=== PATIENT | male | born 1930 | race Caucasian/White ===

== ENCOUNTER → 2016-12-07 | Outpatient (CLI) | payer OTHER ==
[~2016-12-07] MED LIST: AMLO2.5T PO; CALC0.25 PO; LISI-167 PO; LISI-170 PO; METO10TA6 PO; POTA10TA31 PO; SODI650T PO
[2016-12-07 10:44] LABS: ASPARTATE AMINO TRANSFERASE 21 U/L (15-37); BLOOD UREA NITROGEN 32 mg/dL (7-18)
== END | disposition home or self-care (01) ==
LOC: STAR 09:05
PROVIDERS: ATTEND Urology
DX: Z01.818 Encounter for other preprocedural examination (principal); N13.30 Unspecified hydronephrosis
CPT/HCPCS: 36415; 80053; 81001; 87086; 93005

== ENCOUNTER 2016-12-14 09:28 | Day surgery (SDC) | payer OTHER ==
[~2016-12-14] VITALS: Ht 170.2 cm; Wt 67.0 kg
[2016-12-14] MEDS ORDERED: LACTATED RINGERS 1,000 ML IV SCH (10:17)
[2016-12-14 10:47] VITALS: BP 149/89
[2016-12-14] MEDS ORDERED: LIDOCAINE 1%, 2ML ONE (11:18)
[2016-12-14] MEDS ORDERED: PROPOFOL 10 MG/ML, 20ML ONE (12:36)
[2016-12-14] MEDS ORDERED: FENTANYL PF 250 MCG/5ML ONE (12:37)
[2016-12-14] MEDS ORDERED: OMNIPAQUE 350 MG/ML, 50 ML BOTTLE IV ONE (13:14)
[2016-12-14] MEDS ORDERED: OXYcodone/APAP 5/325MG TABLET PO PRN (13:30)
[2016-12-14] MEDS ORDERED: hydrALAzine 20 MG/ML, 1ML IV PRN (13:30)
[2016-12-14] MEDS ORDERED: FENTANYL PF 100 MCG/2ML IV PRN (13:30)
[2016-12-14] MEDS ORDERED: OMNIPAQUE 350 MG/ML, 50 ML BOTTLE ONE (13:30)
[2016-12-14] MEDS ORDERED: OXYcodone 5 MG/5 ML ORAL.SOL UDC PO PRN (13:30)
[2016-12-14] MEDS ORDERED: METOCLOPRAMIDE 5 MG/ML, 2ML IV PRN (13:30)
[2016-12-14] MEDS ORDERED: ACETAMINOPHEN 325 MG TABLET PO PRN (13:30)
[2016-12-14] MEDS ORDERED: MIDAZOLAM 1 MG/ML, 2ML IV PRN (13:30)
[2016-12-14] MEDS ORDERED: HYDROmorphone 1 MG/ML, 1ML IV PRN (13:30)
[2016-12-14] MEDS ORDERED: MEPERIDINE/PF 25MG/0.5ML IVPush PRN (13:30)
[2016-12-14] MEDS ORDERED: PROMETHAZINE 25 MG/ML, 1ML IV PRN (13:30)
[2016-12-14] MEDS ORDERED: ONDANSETRON 2MG/ML, 2ML IVPush PRN (13:30)
[2016-12-14] MEDS ORDERED: LABETALOL 5MG/ML, 20ML IV PRN (13:30)
[2016-12-14] MEDS ORDERED: hydrALAzine 20 MG/ML, 1ML ONE (14:04)
== END 2016-12-14 16:25 | disposition home or self-care (01) ==
LOC: OUT 09:28
PROVIDERS: ATTEND Urology
DX: N13.30 Unspecified hydronephrosis (principal); I12.9 Hypertensive chronic kidney disease with stage 1 through stage 4 chronic kidney disease, or unspecified chronic kidney disease; N18.9 Chronic kidney disease, unspecified; Z99.2 Dependence on renal dialysis; N40.1 Benign prostatic hyperplasia with lower urinary tract symptoms; N13.8 Other obstructive and reflux uropathy; Z86.73 Personal history of transient ischemic attack (TIA), and cerebral infarction without residual deficits; Z87.891 Personal history of nicotine dependence; Z80.42 Family history of malignant neoplasm of prostate
CPT/HCPCS: 52332; 74420; C1758; C1769; C2617; J0360; J2704; Q9967; J3010

== ENCOUNTER → 2017-05-13 | Outpatient (CLI) | payer OTHER ==
[~2017-05-13] MED LIST changes: +CIPR-184 PO
== END ==
LOC: STAR 11:31
PROVIDERS: ATTEND Urology
DX: Z01.818 Encounter for other preprocedural examination (principal); N13.30 Unspecified hydronephrosis; N18.9 Chronic kidney disease, unspecified
CPT/HCPCS: 93005

== ENCOUNTER 2017-05-17 14:10 | Day surgery (SDC) | payer OTHER ==
[2017-05-13 12:45] VITALS: BP 173/103
[~2017-05-17] VITALS: Ht 170.2 cm; Wt 66.5 kg
[~2017-05-17 14:10] MED LIST changes: -CIPR-184 PO
[2017-05-17] MEDS ORDERED: LACTATED RINGERS 1,000 ML IV SCH ×2 (14:20→14:38)
[2017-05-17] MEDS ORDERED: OMNIPAQUE 350 MG/ML, 50 ML BOTTLE IV ONE (17:10)
[2017-05-17] MEDS ORDERED: ONDANSETRON 2MG/ML, 2ML ONE (17:52)
[2017-05-17] MEDS ORDERED: PROPOFOL 10 MG/ML, 20ML ONE (17:52)
[2017-05-17] MEDS ORDERED: CIPROFLOXACIN 400MG/200ML PMX ONE (17:52)
[2017-05-17] MEDS ORDERED: FENTANYL PF 100 MCG/2ML ONE (17:56)
[2017-05-17] MEDS ORDERED: OXYcodone 5 MG/5 ML ORAL.SOL UDC PO PRN ×2 (18:30→19:00)
[2017-05-17] MEDS ORDERED: hydrALAzine 20 MG/ML, 1ML IV PRN (18:30)
[2017-05-17] MEDS ORDERED: ONDANSETRON 2MG/ML, 2ML IVPush PRN (18:30)
[2017-05-17] MEDS ORDERED: LABETALOL 5MG/ML, 20ML IV PRN (18:30)
[2017-05-17] MEDS ORDERED: FENTANYL PF 100 MCG/2ML IV PRN (18:30)
[2017-05-17] MEDS ORDERED: PROMETHAZINE 25 MG/ML, 1ML IV PRN (18:30)
[2017-05-17] MEDS ORDERED: MIDAZOLAM 1 MG/ML, 2ML IV PRN (18:30)
[2017-05-17] MEDS ORDERED: HYDROmorphone 1 MG/ML, 1ML IV PRN (18:30)
[2017-05-17] MEDS ORDERED: OMNIPAQUE 350 MG/ML, 50 ML BOTTLE ONE (18:38)
[2017-05-17] MEDS ORDERED: CIPR-184 PO (20:09)
[2017-05-17 20:25] VITALS: BP 158/83
== END 2017-05-17 22:45 | disposition home or self-care (01) ==
LOC: OR 14:10 → 4NOR 19:58 → OR 22:45
PROVIDERS: ATTEND Urology
DX: N13.30 Unspecified hydronephrosis (principal); N18.9 Chronic kidney disease, unspecified; J44.9 Chronic obstructive pulmonary disease, unspecified; F10.21 Alcohol dependence, in remission
CPT/HCPCS: 52332; 74420; C1758; C2617; J0744; J2405; J2704; J3010; J7120; Q9967

== ENCOUNTER → 2018-06-10 | Outpatient (CLI) | payer OTHER ==
[~2018-06-10] MED LIST changes: -AMLO2.5T PO; +AMLO2.5T3 PO; +CIPR-184 PO
[2018-06-10 11:15] LABS: MICROSCOPIC INDICATED
[2018-06-10 11:22] LABS: ALANINE AMINOTRANSFERASE 25 U/L (12-78); ALBUMIN 3.8 g/dL (3.4-5.0); ANION GAP 5 mmol/L (5-15); CALCIUM 9.1 mg/dL (8.5-10.1); CHLORIDE 109 mmol/L (98-107)
[2018-06-10 11:25] LABS: ALKALINE PHOSPHATASE 74 U/L (45-117); BILIRUBIN,TOTAL 0.4 mg/dL (0.2-1.0); CREATININE 3.64 mg/dL (0.7-1.3); TOTAL PROTEIN 7.4 g/dL (6.4-8.2)
== END | disposition home or self-care (01) ==
LOC: STAR 10:01
PROVIDERS: ATTEND Urology
DX: Z01.818 Encounter for other preprocedural examination (principal); I51.7 Cardiomegaly; N13.30 Unspecified hydronephrosis; I25.2 Old myocardial infarction
CPT/HCPCS: 36415; 80053; 81001; 87086; 93005

== ENCOUNTER 2018-10-24 03:11 | Inpatient (IN) | payer MEDICARE, OTHER ==
[~2018-10-24] VITALS: Ht 167.6 cm; Wt 62.6 kg
[~2018-10-24 03:11] MED LIST changes: -AMLO2.5T3 PO; +AMLO2.5T5 PO
--- NOTE | 2018-10-24 03:24 | NUR ---
WOKE FEELING NAUSEATED AND C/O ABD PAIN, NOW RUQ PAIN PER EMS, PT DENIES CURRENT PAIN, STATES FEELS 'SPENT', PA AT BEDSIDE, CALL LIGHT IN REACH, IN ROOM Addendum: 10/24/18 at 0326 by NORAH PT PLACED ON SAP DIRECTOR
[2018-10-24 03:43] LABS: BASOPHILS # (AUTO) 0.02 x10^3/uL (0-0.1); BASOPHILS % (AUTO) 0 % (0-1); EOSINOPHILS # (AUTO) 0.41 x10^3/uL (0-0.4); EOSINOPHILS % (AUTO) 7 % (1-7); LYMPHOCYTES # (AUTO) 0.99 x10^3/uL (1-3.4); LYMPHOCYTES % (AUTO) 18 % (22-44); MD NO; MEAN CORPUSCULAR HEMOGLOBIN 31.7 pg (27.5-34.5); MEAN CORPUSCULAR HGB CONC 33.3 g/dL (33.2-36.2); MEAN PLATELET VOLUME 8.2 fL (7.4-10.4); MONOCYTES % (AUTO) 11 % (2-9); NEUTROPHILS % (AUTO) 63 % (42-75); PLATELET COUNT 200 x10^3/uL (130-400); RED BLOOD COUNT 4.33 x10^6/uL (4.38-5.82); RED CELL DISTRIBUTION WIDTH 13.6 % (9.4-14.8)
[2018-10-24 03:54] LABS: ALANINE AMINOTRANSFERASE 22 U/L (12-78); ALBUMIN 3.8 g/dL (3.4-5.0); ANION GAP 5 mmol/L (5-15); CALCIUM 9.7 mg/dL (8.5-10.1); CHLORIDE 106 mmol/L (98-107); CREATININE 4.82 mg/dL (0.7-1.3)
[2018-10-24 03:58] LABS: ALKALINE PHOSPHATASE 65 U/L (45-117); BILIRUBIN,TOTAL 0.3 mg/dL (0.2-1.0); TOTAL PROTEIN 7.2 g/dL (6.4-8.2); TROPONIN I < 0.015 ng/mL (0.000-0.045)
--- NOTE | 2018-10-24 04:39 | NUR ---
PT IN US
--- NOTE | 2018-10-24 05:08 | NUR ---
PT BACK FROM US, MEDICATED PER [facility], IV ACCESS ESTABLISHED
[2018-10-24 06:42] LABS: CULTURE INDICATED? YES; MICROSCOPIC AUTO
--- NOTE | 2018-10-24 07:15 | NUR ---
Plan of care updated with patient and his , questions answered.
[2018-10-24] MEDS ORDERED: ACETAMINOPHEN 325 MG TABLET PO PRN ×2 (07:30→14:30)
[2018-10-24] MEDS ORDERED: hydrALAzine 20 MG/ML, 1ML IVPush PRN (07:30)
--- NOTE | 2018-10-24 08:13 | NUR ---
Plan of care discussed with patient and his based on admit orders placed. Patient to remain NPO until evaluated by urology, patient verbalizes understanding.
[2018-10-24] MEDS: SODIUM CHLORIDE FLUSH 10ML SYR IVF SCH ×2 (09:00→20:49)
--- NOTE | 2018-10-24 09:25 | NUR ---
ASSUMED CARE OF PT. PT DENIES ANY COMPLAINTS. EXPLAINED WAITING FOR HOSPITALIST AND A BED. PT NPO.
--- NOTE | 2018-10-24 10:35 | NUR ---
PLACED IN HOSPITAL BED STILL WAITING HOSPITALIST
[2018-10-24] MEDS ORDERED: CEFTRIAXONE PMX 1GM/50ML 50 ML ONE (12:13)
[2018-10-24] MEDS: CEFTRIAXONE PMX 1GM/50ML 50 ML IV SCH (12:32)
[2018-10-24] MEDS: AMLODIPINE 2.5 MG TABLET PO SCH (12:32)
[2018-10-24] MEDS: SODIUM BICARBONATE 650 MG TABLET PO SCH ×2 (12:32→20:46)
[2018-10-24] MEDS: CALCITRIOL 0.25 MCG CAPSULE PO SCH (12:33)
[2018-10-24] MEDS ORDERED: HEPARIN 5,000 UNITS/ML, 1ML ONE (12:38)
[2018-10-24] MEDS: HEPARIN 5,000 UNITS/ML, 1ML SQ SCH ×2 (12:39→20:47)
--- NOTE | 2018-10-24 12:43 | NUR ---
ROUTINE MORNING MEDS GIVEN
--- NOTE | 2018-10-24 12:55 | NUR ---
REPORT GIVEN TO DAVID VALLE IN PRE-OP [facility] TO TRY TO COME GET PT
[2018-10-24] MEDS ORDERED: FENTANYL PF 100 MCG/2ML ONE (14:15)
[2018-10-24] MEDS ORDERED: PROPOFOL 10 MG/ML, 20ML ONE (14:25)
[2018-10-24] MEDS ORDERED: ONDANSETRON 2MG/ML, 2ML ONE (14:25)
[2018-10-24] MEDS ORDERED: LIDOCAINE-MPF 2% ,5ML ONE (14:25)
[2018-10-24] MEDS ORDERED: CEFAZOLIN 1,000 MG ONE (14:25)
[2018-10-24] MEDS ORDERED: OXYcodone 5 MG/5 ML ORAL.SOL UDC PO PRN (14:30)
[2018-10-24] MEDS ORDERED: ONDANSETRON 2MG/ML, 2ML IV PRN (14:30)
[2018-10-24] MEDS ORDERED: ONDANSETRON ODT 8 MG PO PRN (14:30)
[2018-10-24] MEDS ORDERED: FENTANYL PF 100 MCG/2ML IV PRN (14:30)
[2018-10-24 20:00] VITALS: BP 166/79
[2018-10-25 01:15] VITALS: BP 153/83
[2018-10-25] MEDS: HEPARIN 5,000 UNITS/ML, 1ML SQ SCH ×3 (04:59→20:47)
[2018-10-25 05:41] LABS: BASOPHILS # (AUTO) 0.03 x10^3/uL (0-0.1); BASOPHILS % (AUTO) 1 % (0-1); EOSINOPHILS # (AUTO) 0.17 x10^3/uL (0-0.4); EOSINOPHILS % (AUTO) 3 % (1-7); LYMPHOCYTES # (AUTO) 0.64 x10^3/uL (1-3.4); LYMPHOCYTES % (AUTO) 11 % (22-44); MD NO; MEAN CORPUSCULAR HEMOGLOBIN 31.7 pg (27.5-34.5); MEAN CORPUSCULAR HGB CONC 33.8 g/dL (33.2-36.2); MEAN CORPUSCULAR VOLUME 93.6 fL (81-97); MEAN PLATELET VOLUME 8.5 fL (7.4-10.4); MONOCYTES # (AUTO) 0.51 x10^3/uL (0.2-0.8); MONOCYTES % (AUTO) 9 % (2-9); NEUTROPHILS # (AUTO) 4.64 x10^3/uL (1.8-6.8); NEUTROPHILS % (AUTO) 77 % (42-75); PLATELET COUNT 168 x10^3/uL (130-400); RED CELL DISTRIBUTION WIDTH 13.6 % (9.4-14.8)
[2018-10-25 05:50] LABS: ALBUMIN 3.4 g/dL (3.4-5.0); CHLORIDE 107 mmol/L (98-107)
[2018-10-25 05:59] LABS: % IRON SATURATION 30 % (20-55); ALANINE AMINOTRANSFERASE 19 U/L (12-78); ALKALINE PHOSPHATASE 79 U/L (45-117); ANION GAP 11 mmol/L (5-15); BILIRUBIN,TOTAL 0.5 mg/dL (0.2-1.0); CALCIUM 9.1 mg/dL (8.5-10.1); CREATININE 4.85 mg/dL (0.7-1.3); IRON LEVEL 60 mcg/dL (65-175); TOTAL IRON BINDING CAPACITY 199 mcg/dL (250-450); TOTAL PROTEIN 6.7 g/dL (6.4-8.2)
[2018-10-25] MEDS: SODIUM CHLORIDE FLUSH 10ML SYR IVF SCH ×2 (09:00→20:47)
[2018-10-25] MEDS: CALCITRIOL 0.25 MCG CAPSULE PO SCH (09:28)
[2018-10-25] MEDS: AMLODIPINE 2.5 MG TABLET PO SCH (09:28)
[2018-10-25] MEDS: SODIUM BICARBONATE 650 MG TABLET PO SCH ×2 (09:28→20:46)
[2018-10-25] MEDS: CEFTRIAXONE PMX 1GM/50ML 50 ML IV SCH (09:33)
[2018-10-25] MEDS: LISINOPRIL 20 MG TABLET PO SCH ×2 (12:48→20:47)
[2018-10-25] MEDS: LACTATED RINGERS 1,000 ML IV SCH (12:48)
[2018-10-25 14:55] VITALS: BP 148/79
[2018-10-25 19:26] VITALS: BP 164/79
[2018-10-26 02:28] VITALS: BP 174/70
[2018-10-26 05:40] LABS: BASOPHILS # (AUTO) 0.02 x10^3/uL (0-0.1); BASOPHILS % (AUTO) 1 % (0-1); EOSINOPHILS # (AUTO) 0.27 x10^3/uL (0-0.4); EOSINOPHILS % (AUTO) 6 % (1-7); LYMPHOCYTES # (AUTO) 0.69 x10^3/uL (1-3.4); LYMPHOCYTES % (AUTO) 14 % (22-44); MD NO; MEAN CORPUSCULAR HEMOGLOBIN 30.9 pg (27.5-34.5); MEAN CORPUSCULAR HGB CONC 32.9 g/dL (33.2-36.2); MEAN CORPUSCULAR VOLUME 94.1 fL (81-97); MEAN PLATELET VOLUME 8.7 fL (7.4-10.4); MONOCYTES # (AUTO) 0.51 x10^3/uL (0.2-0.8); MONOCYTES % (AUTO) 11 % (2-9); NEUTROPHILS # (AUTO) 3.32 x10^3/uL (1.8-6.8); NEUTROPHILS % (AUTO) 69 % (42-75); PLATELET COUNT 183 x10^3/uL (130-400); RED BLOOD COUNT 4.15 x10^6/uL (4.38-5.82)
[2018-10-26] MEDS: HEPARIN 5,000 UNITS/ML, 1ML SQ SCH ×2 (05:44→13:19)
[2018-10-26 05:45] LABS: ALBUMIN 3.1 g/dL (3.4-5.0); ANION GAP 8 mmol/L (5-15); CALCIUM 8.8 mg/dL (8.5-10.1); CHLORIDE 106 mmol/L (98-107)
[2018-10-26 05:49] LABS: ALANINE AMINOTRANSFERASE 17 U/L (12-78); ALKALINE PHOSPHATASE 70 U/L (45-117); BILIRUBIN,TOTAL 0.3 mg/dL (0.2-1.0); CREATININE 4.58 mg/dL (0.7-1.3); TOTAL PROTEIN 6.2 g/dL (6.4-8.2)
[2018-10-26] MEDS: SODIUM CHLORIDE FLUSH 10ML SYR IVF SCH (09:00)
[2018-10-26 09:10] VITALS: BP 172/84
[2018-10-26] MEDS: LACTATED RINGERS 1,000 ML IV SCH (10:16)
[2018-10-26] MEDS: CEFTRIAXONE PMX 1GM/50ML 50 ML IV SCH (10:16)
[2018-10-26] MEDS: CALCITRIOL 0.25 MCG CAPSULE PO SCH (10:16)
[2018-10-26] MEDS: SODIUM BICARBONATE 650 MG TABLET PO SCH (10:16)
[2018-10-26] MEDS: AMLODIPINE 2.5 MG TABLET PO SCH (10:16)
[2018-10-26] MEDS: LISINOPRIL 20 MG TABLET PO SCH (10:17)
[2018-10-26 13:22] VITALS: BP 149/81
[2018-10-26] MEDS ORDERED: AMLO2.5T5 PO (14:05)
[2018-10-27] MEDS ORDERED: AMLODIPINE 2.5 MG TABLET PO SCH (09:00)
== END 2018-10-26 16:35 | disposition home or self-care (01) | DRG 659 ==
LOC: ED 06:00 → EDIP 06:06 → ED 06:10 → 4WST 18:03 → DCLOUNGE 10-26 16:13
PROVIDERS: ADMIT Hospitalist; ATTEND Hospitalist
PROC: 0TP98DZ Removal of Intraluminal Device from Ureter, Via Natural or Artificial Opening Endoscopic (ICD-10-PCS; 2018-10-24)
PROC: BT141ZZ Fluoroscopy of Kidneys, Ureters and Bladder using Low Osmolar Contrast (ICD-10-PCS; 2018-10-24)
PROC: 0T788DZ Dilation of Bilateral Ureters with Intraluminal Device, Via Natural or Artificial Opening Endoscopic (ICD-10-PCS; principal; 2018-10-24 14:30)
DX: T83.122A Displacement of indwelling ureteral stent, initial encounter (principal); N18.6 End stage renal disease; N13.8 Other obstructive and reflux uropathy; I12.0 Hypertensive chronic kidney disease with stage 5 chronic kidney disease or end stage renal disease; E87.2 Acidosis; I16.1 Hypertensive emergency; N17.9 Acute kidney failure, unspecified; N13.6 Pyonephrosis; Z99.2 Dependence on renal dialysis; D64.9 Anemia, unspecified; N28.1 Cyst of kidney, acquired; R31.0 Gross hematuria; R32 Unspecified urinary incontinence; Y73.2 Prosthetic and other implants, materials and accessory gastroenterology and urology devices associated with adverse incidents; Z87.891 Personal history of nicotine dependence
CPT/HCPCS: 36415; 71045; 74018; 76001; 76770; 80053; 81001; 82306; 82728; 83540; 83550; 83690; 83735; 83880; 83970; 84100; 84484; 84550; 85025; 87086; 93005; 96374; 99285; G0378; J0690; J0696; J1644; J2405; J2704; J3010; J3490; C1769; C2617; J7120

== ENCOUNTER 2019-06-05 06:42 | Day surgery (SDC) | payer MEDICARE ==
[~2019-06-05] VITALS: Ht 167.6 cm; Wt 62.2 kg
--- NOTE | 2019-06-05 06:55 | NUR ---
REPORT GIVEN TO DAVID CLOUD
--- NOTE | 2019-06-05 07:04 | NUR ---
ASSUMED CARE. PT HAS A STIFF NECK, STATING IT STARTED WHEN HE GOT IN BED LAST NIGHT AND WAS READING A BOOK. PT STATES SOME IMPROVEMENT IN PAIN SINCE MEDICATED ENROUTE BY EMS.
[2019-06-05] MEDS ORDERED: DIAZEPAM 5 MG TABLET PO ONE (07:30)
[2019-06-05] MEDS ORDERED: HYDROcodone/APAP 5/325 TABLET PO ONE (07:30)
[2019-06-05 07:51] LABS: BASOPHILS # (AUTO) 0.02 x10^3/uL (0-0.1); BASOPHILS % (AUTO) 0 % (0-1); EOSINOPHILS # (AUTO) 0.08 x10^3/uL (0-0.4); EOSINOPHILS % (AUTO) 1 % (1-7); LYMPHOCYTES # (AUTO) 0.49 x10^3/uL (1-3.4); LYMPHOCYTES % (AUTO) 6 % (22-44); MD NO; MEAN CORPUSCULAR HEMOGLOBIN 31.5 pg (27.5-34.5); MEAN CORPUSCULAR VOLUME 95.5 fL (81-97); MEAN PLATELET VOLUME 7.6 fL (7.4-10.4); MONOCYTES # (AUTO) 0.59 x10^3/uL (0.2-0.8); MONOCYTES % (AUTO) 8 % (2-9); NEUTROPHILS # (AUTO) 6.59 x10^3/uL (1.8-6.8); NEUTROPHILS % (AUTO) 85 % (42-75); PLATELET COUNT 177 x10^3/uL (130-400); RED BLOOD COUNT 4.33 x10^6/uL (4.38-5.82); RED CELL DISTRIBUTION WIDTH 14.3 % (9.4-14.8)
[2019-06-05] MEDS ORDERED: HYDROcodone/APAP 5/325 TABLET ONE (07:59)
[2019-06-05] MEDS ORDERED: DIAZEPAM 5 MG TABLET ONE (08:00)
[2019-06-05] MEDS ORDERED: ONDANSETRON 2MG/ML, 2ML IVPush ONE (08:00)
[2019-06-05] MEDS ORDERED: SODIUM CHLORIDE FLUSH 10ML SYR IVF ONE (08:00)
[2019-06-05 08:01] LABS: ALBUMIN 3.7 g/dL (3.4-5.0); ANION GAP 6 mmol/L (5-15); CALCIUM 8.7 mg/dL (8.5-10.1); CHLORIDE 110 mmol/L (98-107)
[2019-06-05] MEDS ORDERED: MORPHINE SULFATE 4 MG/ML, 1ML ONE (08:01)
[2019-06-05] MEDS ORDERED: ONDANSETRON 2MG/ML, 2ML ONE (08:01)
[2019-06-05 08:02] LABS: CREATININE 3.64 mg/dL (0.7-1.3)
[2019-06-05] MEDS: MORPHINE SULFATE 4 MG/ML, 1ML IVPush PRN ×2 (08:03→12:05)
--- NOTE | 2019-06-05 08:08 | NUR ---
PAIN WORSTENING WITH PT MOANING. MEDICATED PER ORDERS.
--- NOTE | 2019-06-05 08:45 | NUR ---
PT APPEARS MORE COMFORTABLE SINCE MEDICATED FOR NECK PAIN.
--- NOTE | 2019-06-05 11:08 | NUR ---
hospitalist at bedside
[2019-06-05] MEDS ORDERED: ONDANSETRON ODT 4 MG PO PRN (11:30)
[2019-06-05] MEDS ORDERED: ONDANSETRON 2MG/ML, 2ML IVPush PRN (11:30)
--- NOTE | 2019-06-05 11:35 | NUR ---
REPORT TO VIVIANA HERNANDEZ. PT TO BE TRANSPORTED TO FLOOR
[2019-06-05] MEDS: HEPARIN 5,000 UNITS/ML, 1ML SQ SCH ×2 (12:30→21:34)
[2019-06-05] MEDS: ACETAMINOPHEN 325 MG TABLET PO SCH ×2 (12:31→18:12)
[2019-06-05] MEDS: SODIUM CHLORIDE 0.9% 1,000 ML IV SCH (12:35)
[2019-06-05] MEDS ORDERED: LISINOPRIL 20 MG TABLET ONE (13:10)
[2019-06-05] MEDS ORDERED: AMLODIPINE 2.5 MG TABLET ONE (13:11)
[2019-06-05] MEDS ORDERED: AMLODIPINE 2.5 MG TABLET PO ONE (13:30)
[2019-06-05] MEDS ORDERED: LISINOPRIL 20 MG TABLET PO ONE (13:30)
[2019-06-05 14:35] VITALS: BP 172/84
[2019-06-05] MEDS ORDERED: OMNIPAQUE 350 MG/ML, 50 ML BOTTLE ONE (15:30)
[2019-06-05] MEDS: SODIUM BICARBONATE 650 MG TABLET PO SCH ×2 (16:44→21:33)
[2019-06-05 19:14] VITALS: BP 156/77
[2019-06-05] MEDS: LISINOPRIL 20 MG TABLET PO SCH (21:34)
[2019-06-06] MEDS: ACETAMINOPHEN 325 MG TABLET PO SCH ×4 (00:42→18:43)
[2019-06-06 01:37] VITALS: BP 175/79
[2019-06-06] MEDS: SODIUM BICARBONATE 650 MG TABLET PO SCH ×4 (06:15→20:22)
[2019-06-06] MEDS: HEPARIN 5,000 UNITS/ML, 1ML SQ SCH ×3 (06:15→20:23)
[2019-06-06 06:17] LABS: ANION GAP 6 mmol/L (5-15); CALCIUM 8.3 mg/dL (8.5-10.1); CHLORIDE 111 mmol/L (98-107)
[2019-06-06 06:18] LABS: CREATININE 3.66 mg/dL (0.7-1.3)
[2019-06-06 08:00] VITALS: BP 175/79
[2019-06-06] MEDS: AMLODIPINE 2.5 MG TABLET PO SCH (09:22)
[2019-06-06] MEDS: LISINOPRIL 20 MG TABLET PO SCH ×2 (09:22→20:23)
[2019-06-06] MEDS: CALCITRIOL 0.25 MCG CAPSULE PO SCH (09:23)
[2019-06-06] MEDS: SODIUM CHLORIDE 0.9% 1,000 ML IV SCH (12:12)
[2019-06-06 13:59] VITALS: BP 132/82
[2019-06-06] MEDS ORDERED: FENTANYL PF 100 MCG/2ML ONE ×2 (15:27→15:39)
[2019-06-06] MEDS ORDERED: DEXAMETHASONE 4 MG/ML, 1ML ONE (15:40)
[2019-06-06] MEDS ORDERED: PROPOFOL 10 MG/ML, 20ML ONE (15:40)
[2019-06-06] MEDS ORDERED: CEFAZOLIN 1,000 MG ONE (15:55)
[2019-06-06] MEDS ORDERED: OXYcodone 5 MG/5 ML ORAL.SOL UDC PO PRN (16:00)
[2019-06-06] MEDS ORDERED: LABETALOL 5MG/ML, 20ML IV PRN (16:00)
[2019-06-06] MEDS ORDERED: PROMETHAZINE 25 MG/ML, 1ML IV PRN (16:00)
[2019-06-06] MEDS ORDERED: FENTANYL PF 100 MCG/2ML IV PRN (16:00)
[2019-06-06] MEDS ORDERED: MORPHINE SULFATE 4 MG/ML, 1ML IVPush PRN (16:00)
[2019-06-06] MEDS ORDERED: ONDANSETRON 2MG/ML, 2ML IV PRN (16:00)
[2019-06-06] MEDS ORDERED: ACETAMINOPHEN 325 MG TABLET PO PRN (16:00)
[2019-06-06] MEDS: hydrALAzine 20 MG/ML, 1ML IV PRN ×2 (16:41→16:51)
[2019-06-06] MEDS ORDERED: hydrALAzine 20 MG/ML, 1ML ONE (16:50)
[2019-06-06 19:26] VITALS: BP 165/72
[2019-06-07] MEDS: ACETAMINOPHEN 325 MG TABLET PO SCH ×3 (00:22→12:42)
[2019-06-07 01:10] VITALS: BP 157/70
[2019-06-07 05:57] LABS: BASOPHILS # (AUTO) 0.03 x10^3/uL (0-0.1); BASOPHILS % (AUTO) 0 % (0-1); EOSINOPHILS # (AUTO) 0.05 x10^3/uL (0-0.4); EOSINOPHILS % (AUTO) 1 % (1-7); LYMPHOCYTES # (AUTO) 0.68 x10^3/uL (1-3.4); LYMPHOCYTES % (AUTO) 11 % (22-44); MD NO; MEAN CORPUSCULAR HGB CONC 32.2 g/dL (33.2-36.2); MEAN CORPUSCULAR VOLUME 96.3 fL (81-97); MEAN PLATELET VOLUME 7.9 fL (7.4-10.4); MONOCYTES # (AUTO) 0.55 x10^3/uL (0.2-0.8); MONOCYTES % (AUTO) 9 % (2-9); NEUTROPHILS # (AUTO) 4.67 x10^3/uL (1.8-6.8); NEUTROPHILS % (AUTO) 78 % (42-75); PLATELET COUNT 186 x10^3/uL (130-400); RED BLOOD COUNT 4.23 x10^6/uL (4.38-5.82); RED CELL DISTRIBUTION WIDTH 14.5 % (9.4-14.8)
[2019-06-07 06:06] LABS: ANION GAP 10 mmol/L (5-15); CALCIUM 8.7 mg/dL (8.5-10.1); CHLORIDE 110 mmol/L (98-107); CREATININE 4.02 mg/dL (0.7-1.3)
[2019-06-07] MEDS: HEPARIN 5,000 UNITS/ML, 1ML SQ SCH (06:15)
[2019-06-07] MEDS: SODIUM BICARBONATE 650 MG TABLET PO SCH ×2 (06:15→11:39)
[2019-06-07 06:58] VITALS: BP 160/66
[2019-06-07] MEDS: AMLODIPINE 2.5 MG TABLET PO SCH (09:10)
[2019-06-07] MEDS: LISINOPRIL 20 MG TABLET PO SCH (09:11)
[2019-06-07] MEDS: CALCITRIOL 0.25 MCG CAPSULE PO SCH (09:11)
[2019-06-07] MEDS: SODIUM CHLORIDE 0.9% 1,000 ML IV SCH (11:39)
[2019-06-07] MEDS ORDERED: AMLODIPINE 2.5 MG TABLET PO SCH (21:00)
== END 2019-06-07 13:14 | disposition home or self-care (01) ==
LOC: ED 08:04 → OUT 11:03 → EDIP 11:03 → UNDOADMIN 11:03 → 3N 11:47 → EDIP 11:47 → EDSTATUS 18:27 → OUT 06-07 13:14 → UNDODISIN 06-07 13:14
PROVIDERS: ATTEND Emergency Medicine
DX: Z46.6 Encounter for fitting and adjustment of urinary device (principal); N13.30 Unspecified hydronephrosis; I12.9 Hypertensive chronic kidney disease with stage 1 through stage 4 chronic kidney disease, or unspecified chronic kidney disease; N18.4 Chronic kidney disease, stage 4 (severe); N17.9 Acute kidney failure, unspecified; Z79.899 Other long term (current) drug therapy
CPT/HCPCS: 36415; 52332; 72125; 72141; 74420; 76770; 80048; 82040; 85025; 96374; 97162; 97530; 99285; C1769; C2617; J0360; J0690; J1100; J1644; J2270; J2405; J2704; J3010; J7030; Q9967; G0378

== ENCOUNTER 2020-05-02 07:00 | Day surgery (SDC) | payer MEDICARE ==
[2020-04-29 11:52] LABS: CHLORIDE 106 mmol/L (98-107)
[2020-04-29 12:00] LABS: MICROSCOPIC AUTO
[2020-04-29 12:33] LABS: ALANINE AMINOTRANSFERASE 15 U/L (12-78); ALKALINE PHOSPHATASE 76 U/L (45-117); ANION GAP 10 mmol/L (5-15); BILIRUBIN,TOTAL 0.3 mg/dL (0.2-1.0); CALCIUM 8.9 mg/dL (8.5-10.1); CREATININE 4.51 mg/dL (0.7-1.3); TOTAL PROTEIN 7.8 g/dL (6.4-8.2)
[~2020-05-02] VITALS: Ht 170.2 cm; Wt 63.0 kg
[~2020-05-02 07:00] MED LIST changes: +FUROSEMIDE PO
[2020-05-02] MEDS ORDERED: CHLORHEXIDINE 15 ML UDC MM STA (07:14)
[2020-05-02 07:33] VITALS: BP 145/74
[2020-05-02] MEDS ORDERED: LACTATED RINGERS 1,000 ML IV SCH (08:01)
[2020-05-02] MEDS ORDERED: FENTANYL PF 250 MCG/5ML ONE (08:54)
[2020-05-02] MEDS ORDERED: ROCURONIUM 10MG/ML,5ML ONE (09:13)
[2020-05-02] MEDS ORDERED: GLYCOPYRROLATE 0.2MG/1ML, 5ML ONE (09:13)
[2020-05-02] MEDS ORDERED: PROPOFOL 10 MG/ML, 20ML ONE (09:13)
[2020-05-02] MEDS ORDERED: CEFAZOLIN 1,000 MG ONE (09:13)
[2020-05-02] MEDS ORDERED: NEOSTIGMINE 1 MG/ML, 10ML ONE (09:13)
[2020-05-02] MEDS ORDERED: OXYcodone 5 MG/5 ML ORAL.SOL UDC PO PRN (09:30)
[2020-05-02] MEDS ORDERED: LABETALOL 5MG/ML, 20ML IV PRN (09:30)
[2020-05-02] MEDS ORDERED: hydrALAzine 20 MG/ML, 1ML IV PRN (09:30)
[2020-05-02] MEDS ORDERED: FENTANYL PF 100 MCG/2ML IV PRN (09:30)
[2020-05-02] MEDS ORDERED: HYDROmorphone 1 MG/ML, 1ML INJ IVPush PRN (09:30)
[2020-05-02] MEDS ORDERED: ONDANSETRON 2MG/ML, 2ML IVPush PRN (09:30)
[2020-05-02] MEDS ORDERED: OMNIPAQUE 350 MG/ML, 100ML BOTTLE IV ONE (09:53)
[2020-05-02] MEDS ORDERED: SUGAMMADEX 200 MG/2 ML IVPush ONE (10:02)
[2020-05-02] MEDS ORDERED: OMNIPAQUE 350 MG/ML, 50 ML BOTTLE ONE (10:09)
[2020-05-02] MEDS ORDERED: ONDANSETRON 2MG/ML, 2ML ONE (10:20)
[2020-05-02] MEDS ORDERED: OXYcodone/APAP 5/325MG TABLET PO PRN (10:30)
== END 2020-05-02 14:30 | disposition home or self-care (01) ==
LOC: OUT 07:00
PROVIDERS: ATTEND Urology
DX: N13.30 Unspecified hydronephrosis (principal); N13.8 Other obstructive and reflux uropathy; I12.9 Hypertensive chronic kidney disease with stage 1 through stage 4 chronic kidney disease, or unspecified chronic kidney disease; N18.4 Chronic kidney disease, stage 4 (severe); Z79.899 Other long term (current) drug therapy; Z72.89 Other problems related to lifestyle; Z87.891 Personal history of nicotine dependence; Z98.890 Other specified postprocedural states; Z99.2 Dependence on renal dialysis; Z20.828 Contact with and (suspected) exposure to other viral communicable diseases
CPT/HCPCS: 36415; 52332; 74420; 80053; 81001; 87086; 87635; 93005; C2617; J0690; J2405; J2704; J2710; J3010; Q9967

== ENCOUNTER 2020-12-21 08:03 | Emergency (ER) | payer MEDICARE ==
[~2020-12-21] VITALS: Ht 170.2 cm; Wt 60.0 kg
--- NOTE | 2020-12-21 08:31 | NUR ---
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
--- NOTE | 2020-12-21 10:19 | NUR ---
PT being wheeled to room by triage staff at this time. Pt allowed to stay in wheelchair for recheck by PA and family at bedside with him. Pt A/O x4.
--- NOTE | 2020-12-21 10:25 | NUR ---
drying machine back tender completed and civil laboratory technician at bedside for lab draw to [facility]. LUE used per pt with hx fistulas in BUE, neither of which are used any longer as pt no longer requires dialysis.
--- NOTE | 2020-12-21 10:33 | NUR ---
mining engineering technologist stopped before draw by Dr. Canchola. at bedside for assessment.
[2020-12-21] MEDS ORDERED: HYDROcodone/APAP 5/325 TABLET ONE (10:43)
--- NOTE | 2020-12-21 10:47 | NUR ---
PO pain medication given at this time. copier repair technician arrived at bedside for splint application.
[2020-12-21] MEDS ORDERED: HYDROcodone/APAP 5/325 TABLET PO PRN (11:00)
--- NOTE | 2020-12-21 11:15 | NUR ---
Splint in place with good distal CMS noted on reassessment. and pt given d/c instructions and questions answered. Pt ambulatory to d/c desk without gait disturbance noted.
[2020-12-21 11:22] VITALS: BP 120/72
== END 2020-12-21 11:24 | disposition home or self-care (01) ==
LOC: ED 11:08
DX: S60.211A Contusion of right wrist, initial encounter (principal); S60.221A Contusion of right hand, initial encounter; M19.131 Post-traumatic osteoarthritis, right wrist; M19.141 Post-traumatic osteoarthritis, right hand; I10 Essential (primary) hypertension; F17.200 Nicotine dependence, unspecified, uncomplicated; W01.0XXA Fall on same level from slipping, tripping and stumbling without subsequent striking against object, initial encounter; Y93.89 Activity, other specified; Y92.009 Unspecified place in unspecified non-institutional (private) residence as the place of occurrence of the external cause; Y99.8 Other external cause status
CPT/HCPCS: 29125; 99283

== ENCOUNTER → 2020-12-23 | Outpatient (CLI) | payer MEDICARE | END | disposition home or self-care (01) | LOC: STAR 10:47 | PROVIDERS: ATTEND Urology | DX: Z01.818 Encounter for other preprocedural examination (principal); N13.30 Unspecified hydronephrosis | CPT/HCPCS: 93005 ==

== ENCOUNTER 2021-01-02 10:46 | Day surgery (SDC) | payer MEDICARE ==
[~2021-01-02] VITALS: Ht 160 cm; Wt 61.8 kg
[2021-01-02] MEDS ORDERED: TORS5TAB4 PO (11:22)
[2021-01-02] MEDS ORDERED: CARVEDILOL PO (11:22)
[2021-01-02 11:25] VITALS: BP 159/74
[2021-01-02] MEDS ORDERED: CHLORHEXIDINE 15 ML UDC PO ONE (11:30)
[2021-01-02] MEDS ORDERED: LACTATED RINGERS 1,000 ML IV SCH (11:30)
[2021-01-02] MEDS ORDERED: SODIUM CHLORIDE 0.9% 1,000 ML IV SCH (12:00)
[2021-01-02] MEDS ORDERED: FENTANYL PF 100 MCG/2ML ONE (12:34)
[2021-01-02] MEDS ORDERED: OMNIPAQUE 350 MG/ML, 50 ML BOTTLE ONE (12:43)
[2021-01-02] MEDS ORDERED: ALBUTEROL SULFATE 2.5 MG/3 ML NPPB PRN (13:00)
[2021-01-02] MEDS ORDERED: OXYcodone 5 MG/5 ML ORAL.SOL UDC PO PRN (13:00)
[2021-01-02] MEDS ORDERED: FENTANYL PF 100 MCG/2ML IV PRN (13:00)
[2021-01-02] MEDS ORDERED: hydrALAzine 20 MG/ML, 1ML IV PRN (13:00)
[2021-01-02] MEDS ORDERED: HYDROmorphone 2 MG/ML, 1ML IVPush PRN (13:00)
[2021-01-02] MEDS ORDERED: KETOROLAC 30 MG/1 ML IV PRN (13:00)
[2021-01-02] MEDS ORDERED: ACETAMINOPHEN 325 MG TABLET PO PRN (13:00)
[2021-01-02] MEDS ORDERED: DIAZEPAM 5 MG/ML, 2ML IVPush PRN (13:00)
[2021-01-02] MEDS ORDERED: LABETALOL 5MG/ML, 20ML IV PRN (13:00)
[2021-01-02] MEDS ORDERED: MEPERIDINE/PF 25MG/0.5ML IVPush PRN (13:00)
[2021-01-02] MEDS ORDERED: PROMETHAZINE 25 MG/ML, 1ML IV PRN (13:00)
[2021-01-02] MEDS ORDERED: ACETAMINOPHEN 650 MG/20.3 ML UDC ONE (13:23)
[2021-01-02] MEDS ORDERED: ONDANSETRON 2MG/ML, 2ML IV PRN (13:30)
[2021-01-02] MEDS ORDERED: CEFAZOLIN 1,000 MG ONE (13:34)
[2021-01-02] MEDS ORDERED: ONDANSETRON 2MG/ML, 2ML ONE (13:34)
[2021-01-02] MEDS ORDERED: ROCURONIUM 10MG/ML,5ML ONE (13:34)
[2021-01-02] MEDS ORDERED: GLYCOPYRROLATE 0.2MG/1ML, 5ML ONE (13:34)
[2021-01-02] MEDS ORDERED: PROPOFOL 10 MG/ML, 20ML ONE (13:34)
[2021-01-02] MEDS ORDERED: DEXAMETHASONE 4 MG/ML, 1ML ONE (13:34)
[2021-01-02] MEDS ORDERED: NEOSTIGMINE 1 MG/ML, 10ML ONE (13:34)
[2021-01-02] MEDS ORDERED: SUCCINYLCHOLINE 20 MG/ML, 10ML ONE (13:34)
== END 2021-01-02 17:50 | disposition home or self-care (01) ==
LOC: OUT 10:46
PROVIDERS: ATTEND Urology
DX: N13.39 Other hydronephrosis (principal); N40.0 Benign prostatic hyperplasia without lower urinary tract symptoms; I12.0 Hypertensive chronic kidney disease with stage 5 chronic kidney disease or end stage renal disease; N18.6 End stage renal disease; F17.210 Nicotine dependence, cigarettes, uncomplicated; Z20.822 Contact with and (suspected) exposure to COVID-19; Z79.899 Other long term (current) drug therapy; Z86.73 Personal history of transient ischemic attack (TIA), and cerebral infarction without residual deficits; Z98.890 Other specified postprocedural states; Z72.89 Other problems related to lifestyle
CPT/HCPCS: 52332; 74420; 87635; C1758; C1769; C2617; J0330; J0690; J1100; J2405; J2704; J2710; J3010; J7030; Q9967; J7120